=== PATIENT | male | born 1960 | race American Indian/Alaskan Native ===

== ENCOUNTER 2018-05-19 15:26 | Outpatient (CLI) | payer BC | END 2018-05-19 15:27 | disposition home or self-care (01) | LOC: RAD 15:26 ==

== ENCOUNTER 2018-05-28 00:13 | Emergency (ER) | payer BC ==
[2018-05-28 00:24] VITALS: BMI 32.5
[2018-05-28 00:31] VITALS: TEMP 98; O2SAT 100
--- NOTE | 2018-05-28 00:43 | ED PDOC ---
Arrival/HPI - General Chief Complaint: Allergic Reaction Time Seen by Provider: 05/28/18 00:22 Historian: Patient - History of Present Illness Narrative History of Present Illness (Text): 05/28/18 01:15 57 y/o male with PMH of HLD, HTN presents to the Emergency department c/o pruritus x 6 hours. Pruritus is generalized, worse to palms. Pt noticed redness to palms but no distinguishable rash. Pt started 2 new medications yesterday: HCTZ and montelukast. Pt states he has been intermittently itchy over the last 6 months and had allergy testing through his PMD Dr. Isaac Del Toro 2 weeks ago that revealed he was allergic to cat dander and dust mites. Denies fever, chills, throat/lip/tongue swelling, SOB, chest pain, nausea, vomiting, abdominal pain, cough, congestion, sore throat, headache, dizziness, diarrhea, urinary symptoms, or any other associated complaints. Past Medical History - Provider Review Nursing Documentation Reviewed: Yes - Cardiac Hx Hypertension: Yes - Pulmonary Hx Tuberculosis: No (Patient denied) - Neurological Hx Seizures: No - Endocrine/Metabolic Hx Diabetes Mellitus Type 2: Yes (Borderline) - Hematological/Oncological Hx Cancer: No (Patient denied) - Genitourinary/Gynecological Hx Sexually Transmitted Diseases: No - Psychiatric Hx Anxiety: Yes Hx Substance Use: No - Anesthesia Hx Anesthesia: No - Suicidal Assessment Feels Threatened In Home Enviroment: No Family/Social History - Physician Review Nursing Documentation Reviewed: Yes Family/Social History: No Known Family HX Smoking Status: Heavy Smoker > 10 Cigarettes Daily Hx Alcohol Use: No (former) Hx Substance Use: No Allergies/Home Meds Allergies/Adverse Reactions: Allergies cat dander Allergy (Verified 05/28/18 00:24) RASH crab Allergy (Verified 05/28/18 00:24) RASH house dust mite Allergy (Verified 05/28/18 00:24) RASH Home Medications: Home Meds Medication Instructions Recorded Confirmed Carvedilol [Coreg] 25 mg PO BID 05/28/18 05/28/18 Hydrochlorothiazide [Microzide] 25 mg PO DAILY 05/28/18 05/28/18 Montelukast [Singulair] 10 mg PO DAILY 05/28/18 05/28/18 SITagliptin [Januvia] 50 mg PO DAILY 05/28/18 05/28/18 Simvastatin 40 mg PO HS 05/28/18 05/28/18 amLODIPine [Norvasc] 10 mg PO DAILY 05/28/18 05/28/18 Review of Systems - Review of Systems Constitutional: Normal. absent: Fevers Eyes: Normal. absent: Vision Changes, Eye Pain ENT: Normal. absent: Sore Throat, Sinus Congestion Respiratory: Normal. absent: SOB, Cough Cardiovascular: Normal. absent: Chest Pain, Palpitations, Syncope Gastrointestinal: Normal. absent: Abdominal Pain, Stool Changes, Nausea, Vomiting, Appetite Changes Musculoskeletal: Normal. absent: Joint Swelling Skin: Rash, Pruritis Neurological: Normal. absent: Headache, Dizziness Physical Exam Vital Signs Reviewed: Yes Vital Signs Temp Pulse Resp BP Pulse Ox 05/28/18 00:25 98 F 67 18 145/92 H 100 Temperature: Afebrile Blood Pressure: Hypertensive Pulse: Regular Respiratory Rate: Normal Appearance: Positive for: Well-Appearing, Non-Toxic, Comfortable Pain Distress: None Mental Status: Positive for: Alert and Oriented X 3 - Systems Exam Head: Present: Atraumatic, Normocephalic Pupils: Present: PERRL Extroacular Muscles: Present: EOMI Conjunctiva: Present: Normal Mouth: Present: Moist Mucous Membranes, Normal Lips (no swelling), Normal Tounge (no swelling) Pharnyx: Present: Normal. No: Peritonsilar Swelling, Soft Palate/Uvular Edema Neck: Present: Normal Range of Motion. No: Meningeal Signs Respiratory/Chest: Present: Clear to Auscultation, Good Air Exchange. No: Respiratory Distress, Accessory Muscle Use, Wheezes Cardiovascular: Present: Regular Rate and Rhythm, Normal S1, S2, Peripheal Pulses Present Abdomen: Present: Normal Bowel Sounds. No: Tenderness, Distention, Peritoneal Signs, Rebound, Guarding Back: Present: Normal Inspection Upper Extremity: Present: Normal ROM, NORMAL PULSES, Erythema (bilateral palms), Neurovascularly Intact, Capillary Refill < 2s. No: Cyanosis, Edema, Swelling, Temperature Abnormalties Lower Extremity: Present: Normal Inspection, NORMAL PULSES, Normal ROM, Neurov ascularly Intact, Capillary Refill < 2 s. No: Edema, Swelling, Temperature Abnormalties Neurological: Present: GCS=15, CN II-XII Intact, Speech Normal, Motor Func Grossly Intact, Normal Sensory Function, Gait Normal Skin: Present: Warm, Dry, Normal Color. No: Rashes Psychiatric: Present: Alert, Oriented x 3, Normal Insight, Normal Concentration, Normal Affect, Normal Mood Medical Decision Making ED Course and Treatment: 05/28/18 00:35 Initial Plan: * CBC, CMP * Pepcid * Prednisone Patient refusing benadryl. 05/28/18 01:19 Bloodwork reviewed, leukocytosis at 13.6 without left shift. Kidney and liver function wnl. Pt is afebrile with stable vital signs. No other symptoms. No abdominal pain, nausea, vomiting, cough, congestion, urinary symptoms. Pt informed of result, advised PMD followup for repeat bloodwork and return for new/worsening symptoms. Pt also c/o bilateral plantar foot pain suspicious for plantar fasciitis. Advised podiatry followup. Diagnostic testing results and plan of care discussed with patient. Strict instructions given regarding prescription use, importance of followup, and signs/symptoms to return to ER including fever, chills, rash, SOB, throat swelling, or any other new/worsening symptoms. Pt verbalized understanding of discussion. Patient is A&Ox3, ambulating with steady gait, with vital signs stable for discharge. - Lab Interpretations Lab Results: 05/28/18 00:45 05/28/18 00:45 Lab Results 05/28/18 00:45: Sodium 140, Potassium 3.5 L, Chloride 105, Carbon Dioxide 25, Anion Gap 13, BUN 15, Creatinine 0.9, Est GFR ( Amer) > 60, Est GFR (Non- Af Amer) > 60, Random Glucose 105, Calcium 9.2, Total Bilirubin 0.5, AST 22, ALT 16, Alkaline Phosphatase 101, Total Protein 7.5, Albumin 4.3, Globulin 3.3, Albumin/Globulin Ratio 1.3 05/28/18 00:45: WBC 13.6 H, RBC 4.80, Hgb 13.7 L, Hct 40.9 L, MCV 85.2, MCH 28.5, MCHC 33.5, RDW 13.2, Plt Count 254, MPV 9.2, Neut % (Auto) 64.8, Lymph % (Auto) 26.4, [place] % (Auto) 7.7 H, Eos % (Auto) 0.9 L, Baso % (Auto) 0.2, Lymph # (Auto) 3.6 H, [place] # (Auto) 1.0 H, Eos # (Auto) 0.1, Baso # (Auto) 0.03, Absolute Neuts (auto) 8.81 H I have reviewed the lab results: Yes - Medication Orders Current Medication Orders: Discontinued Medications Famotidine (Pepcid) 20 mg PO STAT STA Stop: 05/28/18 00:33 Prednisone (Prednisone Tab) 60 mg PO STAT ONE Stop: 05/28/18 00:33 Disposition/Present on Arrival - Present on Arrival Any Indicators Present on Arrival: No History of DVT/PE: No History of Uncontrolled Diabetes: No Urinary Catheter: No History of Decub. Ulcer: No History Surgical Site Infection Following: None - Disposition Have Diagnosis and Disposition been Completed?: Yes Diagnosis: Pruritus Disposition: HOME/ ROUTINE Disposition Time: 01:37 Patient Plan: Discharge Condition: IMPROVED Discharge Instructions (ExitCare): Itchy Skin, Allergy Testing Additional Instructions: Prednisone 2 tabs daily for 4 more days Pepcid every 12 hours for 1 week Ibuprofen every 8 hours as needed for pain Followup with podiatry within 2 days Followup with primary doctor tomorrow Return to ER with any new/worsening symptoms Prescriptions: Famotidine [Pepcid] 20 mg PO Q12 #14 tab predniSONE [predniSONE Tab] 40 mg PO DAILY #8 tab Referrals: Podiatry Clinic [Outside] - Follow up with primary Isaac Del Toro MD [Primary Care Provider] - Follow up with primary Forms: [facility] ([place]), WORK NOTE
[2018-05-28 00:56] LABS: BASO # 0.03 K/mm3 (0.0-2.0); BASO % 0.2 % (0.0-3.0); EOS # 0.1 (0.0-0.7); EOS % 0.9 % (1.5-5.0); HEMOGLOBIN 13.7 g/dL (14.0-18.0); LYMPH # 3.6 (1.2-3.4); LYMPH % 26.4 % (22.0-35.0); MEAN CELL VOLUME 85.2 fl (80.0-105.0); MEAN CORPUSCULAR HEMOGLOBIN 28.5 pg (25.0-35.0); MEAN CORPUSCULAR HGB CONC 33.5 g/dl (31.0-37.0); MEAN PLATELET VOLUME 9.2 fl (7.0-11.0); MONO % 7.7 % (1.0-6.0); RBC 4.8 10^6/uL (3.5-6.1); RED CELL DISTRIBUTION WIDTH 13.2 % (11.5-14.5); WHITE BLOOD COUNT 13.6 10^3/uL (4.5-11.0)
[2018-05-28 01:17] LABS: ALB/GLOB RATIO 1.3 (1.1-1.8)
[2018-05-28 01:21] LABS: ALBUMIN 4.3 g/dL (3.0-4.8); ALT/SGPT 16 U/L (7-56); AST/SGOT 22 U/L (17-59); BLOOD UREA NITROGEN 15 mg/dL (7-21); CALCIUM 9.2 mg/dL (8.4-10.5); GFR NON-AFRICAN AMERICAN > 60
[2018-05-28] MEDS ORDERED: Potassium Chloride 20 mEq ER Tab PO STA (01:23)
[2018-05-28 01:44] VITALS: BP 142/79; PULSE 78; RESP 20
== END 2018-05-28 01:43 | disposition home or self-care (01) ==
LOC: ED 00:13
DX: L29.9 Pruritus, unspecified (principal); E78.5 Hyperlipidemia, unspecified; F17.210 Nicotine dependence, cigarettes, uncomplicated; I10 Essential (primary) hypertension